=== PATIENT | female | born 1975 | race Caucasian/White ===

== ENCOUNTER → 2019-08-28 | Outpatient (CLI) | payer BC ==
[~2019-08-28] MED LIST: LEVO75TA PO
[2019-08-28 15:46] LABS: BASOPHILS # (AUTO) 0.02 x10^3/uL (0-0.1); BASOPHILS % (AUTO) 0 % (0-1); EOSINOPHILS # (AUTO) 0.23 x10^3/uL (0-0.4); EOSINOPHILS % (AUTO) 3 % (1-7); LYMPHOCYTES # (AUTO) 2.28 x10^3/uL (1-3.4); LYMPHOCYTES % (AUTO) 30 % (22-44); MD NO; MEAN CORPUSCULAR HEMOGLOBIN 29.4 pg (27.0-34.8); MEAN CORPUSCULAR HGB CONC 33.3 g/dL (32.4-35.8); MEAN CORPUSCULAR VOLUME 88.3 fL (80-100); MONOCYTES % (AUTO) 8 % (2-9); NEUTROPHILS # (AUTO) 4.49 x10^3/uL (1.8-6.8); NEUTROPHILS % (AUTO) 59 % (42-75); PLATELET COUNT 219 x10^3/uL (130-400); RED BLOOD COUNT 4.41 x10^6/uL (3.82-5.3); RED CELL DISTRIBUTION WIDTH 13.8 % (9.6-15.2)
[2019-08-28 15:57] LABS: ALBUMIN 3.5 g/dL (3.4-5.0); ANION GAP 5 mmol/L (5-15); CALCIUM 8.6 mg/dL (8.5-10.1); CHLORIDE 107 mmol/L (98-107)
[2019-08-28 16:02] LABS: ALANINE AMINOTRANSFERASE 26 U/L (12-78); ALKALINE PHOSPHATASE 73 U/L (45-117); BILIRUBIN,TOTAL 0.4 mg/dL (0.2-1.0); CREATININE 0.98 mg/dL (0.55-1.02); TOTAL PROTEIN 7.4 g/dL (6.4-8.2)
== END | disposition home or self-care (01) ==
LOC: STAR 14:37
PROVIDERS: ATTEND Surgery
DX: Z01.818 Encounter for other preprocedural examination (principal)
CPT/HCPCS: 36415; 80053; 82378; 85025; 93005

== ENCOUNTER → 2019-09-01 | Outpatient (CLI) | payer BC | END | disposition home or self-care (01) | LOC: LAB 08:00 | PROVIDERS: ATTEND Surgery | DX: Z11.59 Encounter for screening for other viral diseases (principal) | CPT/HCPCS: 36415; 87635 ==

== ENCOUNTER 2019-09-06 10:23 | Day surgery (SDC) | payer BC ==
[~2019-09-06] VITALS: Ht 167.6 cm; Wt 58.0 kg
[2019-09-06] MEDS ORDERED: FENTANYL PF 100 MCG/2ML ONE ×2 (10:41→14:09)
[2019-09-06] MEDS ORDERED: MIDAZOLAM 1 MG/ML, 2ML ONE (10:41)
[2019-09-06] MEDS ORDERED: PROPOFOL 10 MG/ML, 20ML ONE (10:42)
[2019-09-06] MEDS ORDERED: LIDOCAINE 4%, 4 ML SYR/CANN TP ONE (10:46)
[2019-09-06] MEDS ORDERED: LIDOCAINE-MPF 2% ,5ML ONE (10:46)
[2019-09-06] MEDS ORDERED: DEXAMETHASONE 4 MG/ML, 1ML ONE ×2 (10:46)
[2019-09-06] MEDS ORDERED: ONDANSETRON 2MG/ML, 2ML ONE (10:46)
[2019-09-06] MEDS ORDERED: ROCURONIUM 10MG/ML,5ML ONE (10:46)
[2019-09-06 11:05] LABS: HCG UR SG 1.033 (1.003-1.030)
[2019-09-06 11:12] VITALS: BP 115/76
[2019-09-06] MEDS ORDERED: LACTATED RINGERS 1,000 ML IV SCH (11:16)
[2019-09-06] MEDS ORDERED: GABAPENTIN 300 MG CAPSULE PO ONE (11:30)
[2019-09-06] MEDS ORDERED: ACETAMINOPHEN 500 MG TABLET PO ONE (11:30)
[2019-09-06] MEDS ORDERED: CHLORHEXIDINE 15 ML UDC MM ONE (11:30)
[2019-09-06] MEDS ORDERED: BUPIVACAINE/PF 0.5% ONE (12:01)
[2019-09-06] MEDS ORDERED: CEFOTETAN 1 GM ONE (12:20)
[2019-09-06] MEDS ORDERED: SUGAMMADEX 200 MG/2 ML IVPush ONE (12:20)
[2019-09-06] MEDS ORDERED: OXYcodone 5 MG/5 ML ORAL.SOL UDC ONE (13:53)
[2019-09-06] MEDS ORDERED: PROMETHAZINE 25 MG/ML, 1ML IVPush PRN (14:00)
[2019-09-06] MEDS ORDERED: HYDROmorphone 1 MG/ML, 1ML INJ IVPush PRN (14:00)
[2019-09-06] MEDS ORDERED: OXYcodone 5 MG/5 ML ORAL.SOL UDC PO PRN (14:00)
[2019-09-06] MEDS ORDERED: FENTANYL PF 100 MCG/2ML IV PRN (14:00)
[2019-09-06] MEDS ORDERED: ONDANSETRON 2MG/ML, 2ML IVPush PRN (14:00)
[2019-09-06] MEDS ORDERED: MEPERIDINE/PF 25MG/0.5ML IVPush PRN (14:00)
[2019-09-06] MEDS ORDERED: DIAZEPAM 5 MG/ML, 2ML IVPush PRN (14:00)
== END 2019-09-06 17:05 | disposition home or self-care (01) ==
LOC: UNDOADMIN 10:23 → ORIP 10:23 → OUT 10:23 → EDSTATUS 11:30 → OUT 17:05 → UNDODISIN 17:05
PROVIDERS: ATTEND Surgery
DX: K36 Other appendicitis (principal); K38.8 Other specified diseases of appendix; E03.9 Hypothyroidism, unspecified; Z79.890 Hormone replacement therapy; Z87.891 Personal history of nicotine dependence; Z88.5 Allergy status to narcotic agent; Z91.040 Latex allergy status; Z98.890 Other specified postprocedural states; Z82.61 Family history of arthritis; Z82.69 Family history of other diseases of the musculoskeletal system and connective tissue
CPT/HCPCS: 36415; 44970; 81025; 86850; 86900; 88304; J1100; J2250; J2405; J2704; J3010; J3490; J7120; 87635